=== PATIENT | female | born 1945 | race Caucasian/White ===

== ENCOUNTER → 2017-03-02 | Outpatient (CLI) | payer MEDICARE, OTHER ==
[~2017-03-02] MED LIST: AMBIEN CR; AVANDIA; AZO YEAST PO; BACLOFEN10 MG; BACLOFEN10 MG PO; BACTROBAN22 GM EXT; BENAZEPRIL; BENAZEPRIL-HCTZ1 T16 PO; CALCIUM + D 6001 TA1 PO; CARDIZEM CD; CLARITIN10 MG; CLOTRIMAZOLE/BE15 G1 TP; COZAAR100 MG PO; DICYCLOMINE HCL20 MG; FOLIC ACID; GLUCOSAMINE/CHONDROI; GLUCOTROL; JANUVIA; KCL; KEFLEX; KEFLEX500 MG PO; LASIX; LASIX20 MG PO; LEVAQUIN; LOPRESSOR PO; LOTENSIN; LOTENSIN HCT 201 TAB; LYRICA75 MG PO; MOBIC15 MG PO; MUCINEX DM ER1 EACH PO; NEXIUM; NEXIUM PO; PHENERGAN; PROTONIX; QUINAM; TALWIN NX TABLE1 TAB; VESICARE PO; [UNRECOGNIZED DRUG - OTHER] PO
--- NOTE | ~2017-03-02 | US85 ---
[facility] A Service of [facility] & [facility] RADIOLOGY TEXT RESULTS PATIENT: THIAGO BREWER LOCATION: CNIV : 47 UNIT #: [id number] AGE: [address]: Ángel Shah MD SEX: F ORDER DR: [id number] [facility] [address] [place], [place] [address] [id number] O MR#: [id number] Acc #: [id number] NAME: THIAGO BREWER : 1945 SEX: F STUDY DATE/TIME: 03/02/2017 11:02 UNIT: CNIV ROOM: STUDY DESCRIPTION: US LE Veins Unilat or Ltd Stdy Attending Physician: Ángel Shah M.D. Referring Physician: Ángel Shah M.D. Ordering Physician: Ángel Shah M.D. Primary Care Physician: Ángel Shah M.D. MEDICAL IMAGING REPORT This report is preliminary unless electronic signature is present EXAM Left lower extremity venous duplex, 03/02/2017. HISTORY Left leg edema for 5 days. Evaluate for deep vein thrombosis. TECHNIQUE Venous ultrasound examination of the left lower extremity was performed using grayscale, spectral Doppler and color flow Doppler imaging. FINDINGS The examination is negative. There is no evidence of left lower extremity deep venous thrombus from the groin to the lower calf. Visualized greater saphenous vein is also patent. IMPRESSION Negative examination. No evidence of left lower extremity deep venous thrombosis. Dictated by... Zach Hoyos M.D. THIS IS AN ELECTRONICALLY VERIFIED REPORT Zach Hoyos M.D. at 03/03/2017 7:20 AM CYNTHIA/beverly TD: 03/02/2017 16:06 JOB #: [id number] MEDICAL IMAGING REPORT Page 1 of 1 COPY
== END | disposition home or self-care (01) ==
LOC: CNIV 10:37
DX: M79.89 Other specified soft tissue disorders (principal)
CPT/HCPCS: 93971

== ENCOUNTER → 2017-05-12 | Outpatient (CLI) | payer MEDICARE, OTHER ==
--- NOTE | ~2017-05-12 | MR113 ---
[facility] A Service of [facility] & [facility] RADIOLOGY TEXT RESULTS PATIENT: THAIGO BREWER LOCATION: CMRI : 47 UNIT #: [id number] AGE: [address]: Ángel Shah MD SEX: F ORDER DR: [id number] [facility] [address] [place], [place] [address] [id number] O MR#: [id number] Acc #: [id number] NAME: THIAGO BREWER : 1945 SEX: F STUDY DATE/TIME: 05/12/2017 14:36 UNIT: CMRI ROOM: STUDY DESCRIPTION: MR Lumbar Wo Contrast Attending Physician: Ángel Shah M.D. Referring Physician: Ángel Shah M.D. Ordering Physician: Ángel Shah M.D. Primary Care Physician: Ángel Shah M.D. MRI CENTER REPORT This report is preliminary unless electronic signature is present. EXAM Lumbar spine MRI HISTORY Incontinence for the past 6 years with sensation of feet dragging when walking. Low back pain with numbness and tingling in the legs over the past 15 years. TECHNIQUE Multiplanar imaging of the lumbar spine was performed with short and long TR. FINDINGS There is a somewhat transitional lumbosacral vertebral body. This will be defined for purposes of numbering as L5-S1. It could also be considered as L5-L6. Based on the above numbering, the L1-2 level has a normal appearance. At L2-3, the disc is collapsed and there is a degenerative retrolisthesis. There is mild central stenosis. The foramina are widely patent. At L3-4, the disc is desiccated with minimal broad-based disc bulging and mild facet hypertrophy with mild central stenosis. At L4-5, there is broad-based posterior disc bulging. Bilateral facet hypertrophy is seen, mild on the right and severe on the left. Central stenosis is moderate. Foraminal stenosis is mild bilaterally. At L5-S1, there is degenerative grade I spondylolisthesis with advanced bilateral facet hypertrophy. There is no significant disc bulging. There is osteophyte formation in the foramen on each side. This causes moderate bilateral foraminal narrowing, worse on the left than on the right. Central stenosis is mild to moderate. [facility] A Service of [facility] RADIOLOGY TEXT RESULTS PATIENT: THIAGO BREWER [facility] UNIT #: [id number] AGE: [address]: Ángel Shah MD SEX: F ORDER DR: Since the previous scan of 09/16/2006, degenerative changes have progressed most prominently at L2-3 and L5-S1. Facet arthropathy has progressed at L5-S1 most significantly. The conus is normal. There is no evidence of marrow edema or paraspinous mass. IMPRESSION Multilevel degenerative disc and facet disease as described above [id number] showing progression at several levels since 2006. No discrete disc herniation is seen. Foraminal stenosis is most prominent at L5-S1 on the left. There is no evidence of severe central spinal stenosis at any level. Dictated by... Elton Lopez M.D. THIS IS AN ELECTRONICALLY VERIFIED REPORT Elton Lopez M.D. at 05/16/2017 6:06 AM LUIS ENRIQUE/jonny TD: 05/13/2017 10:47 JOB #: [id number] MRI CENTER REPORT Page 1 of 1 COPY
== END | disposition home or self-care (01) ==
LOC: CMRI 13:49
DX: M54.5 Low back pain (principal); M51.36 Other intervertebral disc degeneration, lumbar region; M99.83 Other biomechanical lesions of lumbar region; M99.84 Other biomechanical lesions of sacral region
CPT/HCPCS: 72148